=== PATIENT | male | born 1990 | race African-American/Black ===

== ENCOUNTER 2016-09-22 03:35 | Emergency (ER) | payer SELFPAY ==
[~2016-09-22] VITALS: Ht 177.8 cm; Wt 63.0 kg
[2016-09-22 03:38] VITALS: BP 154/86; PULSE 55; RESP 16; TEMP 98.7; O2SAT 100
--- NOTE | 2016-09-22 04:49 | PD ---
HPI Chief Complaint: Oral / Dental Pain or Problem Time Seen by Provider: 04:45 Travel History International Travel<30 days: No Contact w/Intl Traveler<30days: No Traveled to known affect area: No History of Present Illness HPI 26-year-old black male presents to emergency Department with complaints of right upper dental pain for the past 4 days. He states the pain is becoming increasing painful and swollen. The patient does complain of pain up into his ear. Mild sore throat. He denies any fever or chills. No nausea vomiting. No abdominal pain. [facility] Past Medical History Medical History: Denies Significant Hx Tetanus Vaccination: < 5 Years Past Surgical History Surgical History: No Previous Surgery Social History Alcohol Use: Yes (18 PACK/DAY) Tobacco Use: Yes (1/2 PPD) Substance Use: Yes (MARIJUANA) Allergies-Medications (Allergen,Severity, Reaction): Coded Allergies: No Known Allergies (Verified , 09/22/16) Reported Meds & Prescriptions Reported Meds & Active Scripts Active No Active Prescriptions or Reported Medications Review of Systems Except as stated in HPI: all other systems reviewed are Neg Physical Exam Narrative GENERAL: Well-developed, well-nourished in no acute distress. Nontoxic appearing. HEAD: Normocephalic, atraumatic. EYES: Pupils equal round and reactive. Extraocular motions intact. No scleral icterus. No injection or drainage. ENT: TMs clear without erythema. The external auditory canals clear. Nose: clear . Posterior pharynx is pink and moist. No tonsillar edema or exudate. Uvula midline. Airway patent. Patient has peritonsillar disease. He points to his right upper maxilla and the area of tooth #1 and 2 area there is no obvious large dental carry. He does have some mild gingival erythema. Pain to percussion. No facial swelling. NECK: Trachea midline.Supple, nontender, moves head freely. No central bony tenderness or spasm. CARDIOVASCULAR: Regular rate and rhythm without murmurs, gallops, or rubs. RESPIRATORY: Clear to auscultation. Breath sounds equal bilaterally. No wheezes , rales, or rhonchi. GASTROINTESTINAL: Abdomen soft, non-tender, nondistended. No hepato-splenomegaly , or palpable masses. No guarding. EXTREMITIES: No clubbing, cyanosis, or edema. No joint tenderness, effusion, or edema noted. BACK: Nontender without deformity or crepitance. No flank tenderness. Data Data Last Documented VS Vital Signs Date Time Temp Pulse Resp B/P Pulse Ox O2 Delivery O2 Flow Rate FiO2 09/22/16 03:38 98.7 55 16 154/86 100 MDM Medical Decision Making Medical Screen Exam Complete: Yes Emergency Medical Condition: Yes Medical Record Reviewed: Yes Differential Diagnosis MDM: Moderate Differential diagnoses: Dental abscess, dental caries, osteitis, cellulitis Narrative Course This is dentalgia. Patient's given Amoxil 500 and Naprosyn 500 by mouth. Diagnosis Primary Impression: Dentalgia Patient Instructions: General Instructions Additional Instructions: Rest. Saltwater gargles. Poca oil on cotton balls. Amoxicillin and diclofenac follow-up with a dentist as soon as possible. And return to the ER if any problems. Med/Other Pt SpecificInfo: Prescription(s) given Scripts No Active Prescriptions or Reported Meds Disposition: 01 DISCHARGE HOME Condition: Stable Lamont Hinojosa September 22, 2016 04:49
[2016-09-22] MEDS ORDERED: AMOX500C PO (04:50)
[2016-09-22] MEDS ORDERED: DICL75TA PO (04:50)
[2016-09-22] MEDS ORDERED: AMOXICILLIN (TRIHYDRATE) 500 MG CAP PO ONE (05:00)
[2016-09-22] MEDS ORDERED: NAPROXEN 500 MG TAB PO ONE (05:00)
== END 2016-09-22 05:11 | disposition home or self-care (01) ==
LOC: NEPK 03:35
DX: K08.89 Other specified disorders of teeth and supporting structures (principal); F17.200 Nicotine dependence, unspecified, uncomplicated
CPT/HCPCS: 99282

== ENCOUNTER 2016-11-07 17:38 | Emergency (ER) | payer SELFPAY ==
[~2016-11-07 17:38] MED LIST: AMOX500C PO; DICL75TA PO
[2016-11-07 17:41] VITALS: BP 143/94; PULSE 81; RESP 18; TEMP 98.2; O2SAT 98
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
[2016-11-07] MEDS ORDERED: IBUP-232 PO (17:56)
[2016-11-07] MEDS ORDERED: SILV1CRE20 TOPICAL (17:56)
[2016-11-07] MEDS ORDERED: SILVER SULFADIAZINE 1% CR 50 GM JAR TOPICAL ONE (18:00)
[2016-11-07] MEDS ORDERED: IBUPROFEN 600 MG TAB PO ONE (18:15)
== END 2016-11-07 18:18 | disposition home or self-care (01) ==
LOC: NEPD 17:38
DX: T21.21XA Burn of second degree of chest wall, initial encounter (principal); T31.0 Burns involving less than 10% of body surface; X10.2XXA Contact with fats and cooking oils, initial encounter; Y93.G3 Activity, cooking and baking
CPT/HCPCS: 16020; 99283

== ENCOUNTER 2017-07-05 19:20 | Emergency (ER) | payer MEDICAID, OTHER ==
[~2017-07-05] VITALS: Ht 177.8 cm; Wt 63.6 kg
[~2017-07-05 19:20] MED LIST changes: +IBUP-232 PO; +SILV1CRE20 TOPICAL
[2017-07-05 19:23] VITALS: BP 188/81; PULSE 70; RESP 16; TEMP 98.4; O2SAT 100
[2017-07-05] MEDS ORDERED: PRED20 PO (19:34)
--- NOTE | 2017-07-05 19:37 | PD ---
HPI Chief Complaint: Skin Problem Time Seen by Provider: 19:33 Travel History International Travel<30 days: No Contact w/Intl Traveler<30days: No Traveled to known affect area: No History of Present Illness HPI 27-year-old male here for pruritic rash. 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 He reports pruritus on his neck, upper back and arms. His torso has been spared, he reports that he was wearing clothing while doing landscaping. He has been putting calamine lotion on the rash but it persisted which prompted evaluation. No other complaints at this time. [facility] Social History Alcohol Use: Yes (18 PACK/DAY) Tobacco Use: Yes (/2 PPD) Substance Use: Yes (MARIJUANA) Allergies-Medications (Allergen,Severity, Reaction): Coded Allergies: No Known Allergies (Verified , 09/22/16) Reported Meds & Prescriptions Reported Meds & Active Scripts Active Prednisone 20 Mg Tab 20 Mg PO BID 5 Days Ibuprofen 600 Mg Tab 600 Mg PO Q8H PRN Silvadene Topical (Silver Sulfadiazine) 1 % Cream 1 Applic TOPICAL DIRECTED Diclofenac Sodium DR (Diclofenac Sodium) 75 Mg Tabdr 75 Mg PO BID Amoxicillin 500 Mg Cap 500 Mg PO TID Review of Systems General / Constitutional: No: Fever, Chills Skin: Positive Rash, Positive Itching Physical Exam Narrative GENERAL: Well-nourished male in no acute distress SKIN: Warm and dry. Scattered vesicles noted on the arms, neck and upper back. HEAD: Atraumatic. Normocephalic. EYES: Pupils equal and round. No scleral icterus. No injection or drainage. ENT: No nasal bleeding or discharge. Mucous membranes pink and moist. NECK: Trachea midline. No JVD. CARDIOVASCULAR: Regular rate and rhythm. No murmur appreciated. RESPIRATORY: No accessory muscle use. Clear to auscultation. Breath sounds equal bilaterally. Data Data Last Documented VS Vital Signs Date Time Temp Pulse Resp B/P (MAP) Pulse Ox O2 Delivery O2 Flow Rate FiO2 07/05/17 19:23 98.4 70 16 188/81 (116) 100 Orders Orders Prednisone (Deltasone) (07/05/17 19:45) Diphenhydramine (Benadryl) (07/05/17 19:45) Ed Discharge Order (2/20/18 19:34) [facility] Medical Decision Making Medical Screen Exam Complete: Yes Emergency Medical Condition: Yes Medical Record Reviewed: Yes Differential Diagnosis Allergic contact dermatitis, irritant contact dermatitis, viral exanthem Narrative Course History of examination are consistent with allergic contact dermatitis. He will be discharged with prednisone. Diagnosis Primary Impression: Allergic contact dermatitis Additional Instructions: Medication as prescribed. Benadryl or itching. Do not drive or drink alcohol or operate heavy machinery when using Benadryl. Avoid scratching. Follow-up with primary care physician as needed. Med/Other Pt SpecificInfo: Prescription(s) given Scripts Prednisone (Prednisone) 20 Mg Tab 20 MG PO BID for 5 Days, #10 TAB 0 Refills Prov: Melquiades Mosley MD 07/05/17 Disposition: 01 DISCHARGE HOME Condition: Stable Clinton Medrano Jul 05, 2017 19:37
[2017-07-05] MEDS ORDERED: predniSONE 20 MG TAB PO ONE (19:45)
[2017-07-05] MEDS ORDERED: diphenhydrAMINE HCL 50 MG CAP PO ONE (19:45)
== END 2017-07-05 19:54 | disposition home or self-care (01) ==
LOC: NEPK 19:20
DX: L23.9 Allergic contact dermatitis, unspecified cause (principal); F17.200 Nicotine dependence, unspecified, uncomplicated; F12.90 Cannabis use, unspecified, uncomplicated
CPT/HCPCS: 99283; J7512; Q0163